=== PATIENT | male | born 1940 | race Caucasian/White ===

== ENCOUNTER 2017-10-07 11:12 | Day surgery (SDC) | payer OTHER ==
[2017-10-07] MEDS ORDERED: LACTATED RINGERS 1,000 ML IV ONE (12:19)
[2017-10-07] MEDS ORDERED: MIDAZOLAM 2 MG/2 ML VIAL IVP ONE (13:23)
[2017-10-07] MEDS ORDERED: fentaNYL 100 MCG/2 ML VIAL IVP ONE (13:23)
[2017-10-07 14:53] VITALS: BP 124/90
== END 2017-10-07 11:13 | disposition home or self-care (01) ==
LOC: SDS 11:12
PROVIDERS: ATTEND Surgery
PROC: 0DBL8ZX Excision of Transverse Colon, Via Natural or Artificial Opening Endoscopic, Diagnostic (ICD-10-PCS; principal; 2017-10-07 12:15)
DX: D12.3 Benign neoplasm of transverse colon (principal); K57.30 Diverticulosis of large intestine without perforation or abscess without bleeding; K64.8 Other hemorrhoids; Z86.010 Personal history of colon polyps; Z79.82 Long term (current) use of aspirin; I10 Essential (primary) hypertension; J45.909 Unspecified asthma, uncomplicated
CPT/HCPCS: 45380; J7120

== ENCOUNTER 2017-12-18 08:55 | Outpatient (CLI) | payer OTHER | END 2017-12-18 08:56 | disposition critical access hospital (66) | LOC: EMS 08:55 | PROVIDERS: ATTEND Surgery | DX: R42 Dizziness and giddiness (principal) | CPT/HCPCS: A0425; A0429 ==

== ENCOUNTER 2017-12-18 08:56 | Emergency (ER) | payer OTHER ==
[2017-12-18] MEDS ORDERED: LORazepam 2 MG/ML VIAL IVP STA (09:24)
[2017-12-18] MEDS ORDERED: MECLIZINE 12.5 MG TABLET PO STA (09:25)
--- NOTE | 2017-12-18 09:25 | ED Physician Documentation ---
PD HPI FOCAL NEURO - Stated complaint Stated Complaint: DIZZY - Chief complaint Chief Complaint: Neuro - History obtained from History obtained from: Patient, EMS - History of Present Illness Timing - onset: Today (this morning when he got up from bed; he felt okay when awoke, but got very dizzy/vertigo when he stood up. Feels better if stays still. Dizzy when stands up, moves head (bill to the left).) Timing - duration: Hours (2) Timing - details: Abrupt onset, Still present Severity of deficit: Moderate Weakness: No: Face, Arm, Hand, Leg, Foot, Right, Left, Other Numbness: No: Face, Arm, Hand, Leg, Foot, Right, Left, Other Associated symptoms: Nausea / vomiting. No: Headache, Syncope, Head injury, Chest pain, Neck pain, Back pain Contributing factors: positive: Atrial fibrillation. negative: Anticoagulated, Vascular dz Baseline status: positive: A&OX3, ambulatory, indep Similar symptoms before: Has not had sx before Recently seen: Not recently seen Review of Systems Constitutional: denies: Fever, Chills Eyes: denies: Loss of vision, Photophobia Ears: denies: Loss of hearing, Ear pain, Drainage/discharge, Tinnitus/ringing Nose: denies: Rhinorrhea / runny nose, Congestion, Sinus pressure / pain Throat: denies: Sore throat Cardiac: denies: Chest pain / pressure, Palpitations Respiratory: denies: Dyspnea, Cough GI: reports: Nausea. denies: Vomiting, Diarrhea : denies: Dysuria, Frequency Skin: denies: Rash, Lesions Neurologic: denies: Focal weakness, Numbness, Near syncope, Altered mental status, Headache, Head injury PD PAST MEDICAL HISTORY - Past Medical History Past Medical History: Yes Cardiovascular: Atrial fibrillation Respiratory: Asthma Endocrine/Autoimmune: None GI: Colon polyps : None HEENT: None Psych: None Musculoskeletal: Osteoarthritis Derm: Other - Past Surgical History Ortho: Other HEENT: Tonsil/Adenoidectomy Derm: Skin cancer surgery - Present Medications Home Medications: Ambulatory Orders Medication Instructions Recorded Confirmed Terazosin [Hytrin] 5 mg PO DAILY 10/04/17 12/18/17 Albuterol 1 puffs IN DAILY 10/07/17 12/18/17 Aspirin 81 mg PO DAILY 10/07/17 12/18/17 Diltiazem HCl [Cardizem] 120 mg PO BID 10/07/17 12/18/17 Metoprolol Succinate 12.5 mg PO DAILY 10/07/17 12/18/17 Dexamethasone [Decadron] 4 mg PO DAILY #5 tablet 12/18/17 Meclizine [Antivert] 25 mg PO Q6H PRN #30 tablet 12/18/17 - Allergies Allergies/Adverse Reactions: Allergies Allergy/AdvReac Type Severity Reaction Status Date / Time diphenhydramine AdvReac Rash Verified 10/07/17 12:04 [From Benadryl] Penicillins AdvReac Rash Verified 10/07/17 12:05 - Social History Does the pt smoke?: No Smoking Status: Never smoker PD ED PE NORMAL - Vitals Vital signs reviewed: Yes - General General: Alert and oriented X 3, No acute distress, Well developed/nourished - HEENT HEENT: Atraumatic, PERRL, EOMI (with nystagmus to the left), Ears normal, Moist mucous membranes, Pharynx benign - Neck Neck: Supple, no meningeal sign, No adenopathy, No bruit - Cardiac Cardiac: RRR, No murmur - Respiratory Respiratory: Clear bilaterally - Abdomen Abdomen: Soft, Non tender NIHSS - Level of Consciousness Level of consciousness: (0) Alert, Keenly responsive LOC Questions: (0) Answers both Q's correct LOC Commands: (0) Performs both correctly - Gaze Best Gaze: (0) Normal - Visual Visual: (0) No loss - Facial Palsy Facial Palsy: (0) Normal, symmetrical movement - Motor Arms (both separate) Motor Arm (right): (0) No drift Motor Arm (left): (0) No drift - Motor Legs (both separate) Motor Leg (right): (0) No drift Motor Leg (left): (0) No drift - Limb Ataxia Limb Ataxia: (0) Absent - Sensory Sensory: (0) Normal - Best Language Best Language: (0) No aphasia - Dysarthria Dysarthria: (0) Normal - Extinction and Inattention (formally neg Extinction and inattention: (0) No abnormality - Total Score/Results Total Score/Result: 0 Results - Vitals Vitals: Vital Signs - 24 hr 12/18/17 12/18/17 12/18/17 08:58 09:30 10:00 Temperature 36.1 C L Heart Rate 73 68 70 Respiratory 18 12 14 Rate Blood Pressure 126/88 H 119/73 114/88 H O2 Saturation 96 93 93 12/18/17 12/18/17 12/18/17 10:49 11:00 11:20 Temperature 36.2 C L Heart Rate 67 66 Respiratory 15 16 Rate Blood Pressure 113/77 122/72 O2 Saturation 94 93 Oxygen O2 Source Room air - EKG (time done) 9:04 Rate: Rate (enter#) (65) Rhythm: NSR [place]: Normal Intervals: Normal [place] QRS: Normal Ischemia: Normal ST segments. No: ST elevation c/w ischemia, ST depression - Labs Labs: Laboratory Tests 12/18/17 12/18/17 12/18/17 09:40 09:40 09:40 WBC 10.3 RBC 4.78 Hgb 15.1 Hct 44.4 MCV 92.8 MCH 31.6 H MCHC 34.0 RDW 13.7 Plt Count 169 MPV 7.3 L Neut # 8.4 H Lymph # 1.1 L [place] # 0.6 Eos # 0.1 Baso # 0.1 Absolute Nucleated RBC 0.00 Nucleated RBC % 0.0 ESR 4 Sodium 138 Potassium 4.2 Chloride 103 Carbon Dioxide 24 Anion Gap 11.0 BUN 22 H Creatinine 0.8 Estimated GFR (MDRD) 94 Glucose 106 H Calcium 9.4 Magnesium 2.0 Total Bilirubin 1.0 AST 23 ALT 24 Alkaline Phosphatase 54 Total Protein 6.6 L Albumin 4.0 Globulin 2.6 Albumin/Globulin Ratio 1.5 Lipase 18 L PD MEDICAL DECISION MAKING - ED course Complexity details: re-evaluated patient (improved with meds aitvan and meclizine), considered differential (seems peripheral vertigo and not central. ) , d/w patient Departure - Departure Disposition: Home, Self Care Clinical Impression: Positional vertigo Qualifiers: Laterality: unspecified laterality Qualified Code(s): H81.10 - Benign paroxysmal vertigo, unspecified ear Condition: Stable Record reviewed to determine appropriate education?: Yes Instructions: ED Vertigo Unspecified Follow-Up: CLARISSE LOVE [Primary Care Provider] - Prescriptions: Dexamethasone [Decadron] 4 mg PO DAILY #5 tablet Meclizine [Antivert] 25 mg PO Q6H PRN #30 tablet PRN Reason: Vertigo Comments: Regular fluids and food. Of your medications, terazosin is associated with dizziness. I realize you have not had a change in your dosing or medications for that. Otherwise they can be just inflammation or debris in the inner ear that is causing the improper feedback or sensation of movement creating the vertigo. For that would use some anti-inflammatory and an ENT vertigo medicine and see if that tapers down and improves in the next day or 2. If the dizziness is persistent, you might need to hold the terazosin to see if it may be newly a side effect from that. Follow-up with your primary care if not improved over the next few days. At least the medications seem to decrease her symptoms for now. Discharge Date/Time: 12/18/17 11:25
[2017-12-18 09:48] LABS: BASOPHILS # (AUTO) 0.1 10^3/uL (0.0-0.1); BASOPHILS % (AUTO) 0.6 %; EOSINOPHILS # (AUTO) 0.1 10^3/uL (0.0-0.7); EOSINOPHILS % (AUTO) 0.7 %; HGB - HEMOGLOBIN 15.1 g/dL (14.0-18.0); LYMPHOCYTES # (AUTO) 1.1 10^3/uL (1.5-3.5); LYMPHOCYTES % (AUTO) 10.8 %; MEAN CORPUSCULAR HEMOGLOBIN 31.6 pg (27.0-31.0); MEAN CORPUSCULAR VOLUME 92.8 fL (80.0-94.0); MEAN PLATELET VOLUME 7.3 fL (7.4-11.4); MONOCYTES # (AUTO) 0.6 10^3/uL (0.0-1.0); MONOCYTES % (AUTO) 5.9 %; NEUTROPHILS # (AUTO) 8.4 10^3/uL (1.5-6.6); PLT - PLATELET COUNT 169 10^3/uL (130-450); RED BLOOD COUNT 4.78 10^6/uL (4.70-6.10); RED CELL DISTRIBUTION WIDTH 13.7 % (12.0-15.0); WHITE BLOOD COUNT 10.3 x10^3/uL (4.8-10.8)
[2017-12-18 10:11] LABS: ALBUMIN/GLOBULIN RATIO 1.5 (1.0-2.2); CALCIUM 9.4 mg/dL (8.5-10.3); CREATININE 0.8 mg/dL (0.6-1.2); TOTAL PROTEIN 6.6 g/dL (6.7-8.2)
[2017-12-18] MEDS ORDERED: DEXAMETHASONE 10 MG/ML VIAL IVP STA (10:51)
[2017-12-18 11:11] VITALS: BP 122/72
== END 2017-12-18 11:25 | disposition home or self-care (01) ==
LOC: EDUNIT# → ED 08:56
DX: H81.10 Benign paroxysmal vertigo, unspecified ear (principal); I48.91 Unspecified atrial fibrillation; J45.909 Unspecified asthma, uncomplicated; Z79.82 Long term (current) use of aspirin
CPT/HCPCS: 36415; 80053; 83690; 83735; 85025; 85651; 93005; 96374; 96375; 99284; A9270; J2060

== ENCOUNTER 2017-12-28 10:03 | Emergency (ER) | payer MEDICARE, OTHER ==
[2017-12-28] MEDS ORDERED: diazePAM 5 MG TABLET PO STA (12:13)
--- NOTE | 2017-12-28 12:15 | ED Physician Documentation ---
PD HPI FOCAL NEURO - Stated complaint Stated Complaint: DIZZY - Chief complaint Chief Complaint: Neuro - History obtained from History obtained from: Patient - History of Present Illness Timing - onset: Other (He had spinning vertigo about 10 days ago, was seen here and treated with steroids and meclizine. He got better after a few days but recurred 3 days ago and notes that the meclizine seems to keep him from sleeping. He was has some trouble sleeping and chronically takes hydroxyzine at night for that. There is a very mild associated headache but not significant. He denies any hearing loss or ear pain. No URI symptoms. He denies weakness, numbness, or tingling in the extremities except for the toes on both sides which is symmetric.) Review of Systems Constitutional: denies: Fever, Chills Ears: denies: Loss of hearing, Ear pain Nose: denies: Rhinorrhea / runny nose, Congestion Throat: denies: Sore throat PD PAST MEDICAL HISTORY - Past Medical History Past Medical History: Yes Cardiovascular: Hypertension, Atrial fibrillation Respiratory: Asthma Endocrine/Autoimmune: None GI: Colon polyps : None HEENT: None Psych: None Musculoskeletal: Osteoarthritis Derm: Other - Past Surgical History Past Surgical History: Yes Ortho: Other HEENT: Tonsil/Adenoidectomy Derm: Skin cancer surgery - Present Medications Home Medications: Ambulatory Orders Medication Instructions Recorded Confirmed Terazosin [Hytrin] 5 mg PO DAILY 10/04/17 12/18/17 Albuterol 1 puffs IN DAILY 10/07/17 12/18/17 Aspirin 81 mg PO DAILY 10/07/17 12/18/17 Diltiazem HCl [Cardizem] 120 mg PO BID 10/07/17 12/18/17 Metoprolol Succinate 12.5 mg PO DAILY 10/07/17 12/18/17 Dexamethasone [Decadron] 4 mg PO DAILY #5 tablet 12/18/17 Meclizine [Antivert] 25 mg PO Q6H PRN #30 tablet 12/18/17 Promethazine [Phenergan] 25 - 50 mg PO Q6H PRN #20 tab 12/28/17 - Allergies Allergies/Adverse Reactions: Allergies Allergy/AdvReac Type Severity Reaction Status Date / Time diphenhydramine AdvReac Rash Verified 10/07/17 12:04 [From Benadryl] Penicillins AdvReac Rash Verified 10/07/17 12:05 - Social History Does the pt smoke?: No Smoking Status: Never smoker PD ED PE NORMAL - Vitals Vital signs reviewed: Yes - General General: Alert and oriented X 3, No acute distress - HEENT HEENT: PERRL, EOMI, Other (Left TM is occluded by cerumen, right TM is normal) - Neck Neck: Supple, no meningeal sign, No bony TTP - Cardiac Cardiac: RRR, No murmur - Respiratory Respiratory: No respiratory distress, Clear bilaterally - Neuro Neuro: Alert and oriented X 3, crater and packer 2-12 intact, Normal speech Eye Opening: Spontaneous Motor: Obeys Commands Verbal: Oriented GCS Score: 15 - Psych Psych: Normal mood, Normal affect NIHSS - Time Time: 12:10 - Level of Consciousness Level of consciousness: (0) Alert, Keenly responsive LOC Questions: (0) Answers both Q's correct LOC Commands: (0) Performs both correctly - Gaze Best Gaze: (0) Normal - Visual Visual: (0) No loss - Facial Palsy Facial Palsy: (0) Normal, symmetrical movement - Motor Arms (both separate) Motor Arm (right): (0) No drift Motor Arm (left): (0) No drift - Motor Legs (both separate) Motor Leg (right): (0) No drift Motor Leg (left): (0) No drift - Limb Ataxia Limb Ataxia: (0) Absent - Sensory Sensory: (0) Normal - Best Language Best Language: (0) No aphasia - Dysarthria Dysarthria: (0) Normal - Extinction and Inattention (formally neg Extinction and inattention: (0) No abnormality - Total Score/Results Total Score/Result: 0 Results - Vitals Vitals: Vital Signs - 24 hr 12/28/17 12/28/17 10:10 10:19 Temperature 36.1 C L 36.5 C Heart Rate 69 70 Respiratory 16 18 Rate Blood Pressure 130/80 O2 Saturation 97 96 Oxygen O2 Source Room air - EKG (time done) 1011 Rate: Rate (enter#) (70) Rhythm: NSR [place]: Normal Intervals: Normal [place] QRS: Low voltage Ischemia: Normal ST segments Computer interpretation: Agree with computer - Labs Labs: Laboratory Tests 12/28/17 12/28/17 12/28/17 12:04 12:04 12:04 WBC 11.1 H RBC 4.95 Hgb 15.7 Hct 46.1 MCV 93.1 MCH 31.6 H MCHC 34.0 RDW 14.4 Plt Count 154 MPV 7.7 Neut # 9.0 H Lymph # 1.1 L [place] # 0.9 Eos # 0.1 Baso # 0.0 Absolute Nucleated RBC 0.00 Nucleated RBC % 0.0 PT 11.8 INR 1.0 Sodium 135 Potassium 4.1 Chloride 101 Carbon Dioxide 25 Anion Gap 9.0 BUN 21 H Creatinine 0.8 Estimated GFR (MDRD) 94 Glucose 92 Calcium 9.9 Total Bilirubin 0.9 AST 23 ALT 26 Alkaline Phosphatase 58 Troponin I Total Protein 6.6 L Albumin 3.7 Globulin 2.9 Albumin/Globulin Ratio 1.3 Lipase 24 12/28/17 12:04 WBC RBC Hgb Hct MCV MCH MCHC RDW Plt Count MPV Neut # Lymph # [place] # Eos # Baso # Absolute Nucleated RBC Nucleated RBC % PT INR Sodium Potassium Chloride Carbon Dioxide Anion Gap BUN Creatinine Estimated GFR (MDRD) Glucose Calcium Total Bilirubin AST ALT Alkaline Phosphatase Troponin I < 0.04 Total Protein Albumin Globulin Albumin/Globulin Ratio Lipase - Rads (name of study) CT Head Radiology: EMP read contemporaneously (NAD) PD MEDICAL DECISION MAKING - ED course ED course: Seems peripheral, but the history of atrial fibrillation and advanced age I will get some cranial imaging. I order Valium in lieu of the meclizine which he did not like, he did not want to take Valium either because of personal history with that medication. Departure - Departure Disposition: 01 Home, Self Care Clinical Impression: Vertigo Condition: Good Record reviewed to determine appropriate education?: Yes Instructions: ED Vertigo Unspecified Prescriptions: Promethazine [Phenergan] 25 - 50 mg PO Q6H PRN #20 tab PRN Reason: Vertigo Comments: Followup with an ENT, [facility] closest [facility], call [phone] for an appointment.
[2017-12-28] MEDS ORDERED: PROMETHAZINE 25 MG TABLET PO STA (12:32)
[2017-12-28 12:34] LABS: ALBUMIN 3.7 g/dL (3.2-5.5); ALBUMIN/GLOBULIN RATIO 1.3 (1.0-2.2); BASOPHILS % (AUTO) 0.1 %; BILIRUBIN,TOTAL 0.9 mg/dL (0.2-1.0); CALCIUM 9.9 mg/dL (8.5-10.3); CREATININE 0.8 mg/dL (0.6-1.2); EOSINOPHILS # (AUTO) 0.1 10^3/uL (0.0-0.7); HGB - HEMOGLOBIN 15.7 g/dL (14.0-18.0); LYMPHOCYTES # (AUTO) 1.1 10^3/uL (1.5-3.5); LYMPHOCYTES % (AUTO) 10.2 %; MEAN CORPUSCULAR HEMOGLOBIN 31.6 pg (27.0-31.0); MEAN CORPUSCULAR VOLUME 93.1 fL (80.0-94.0); MEAN PLATELET VOLUME 7.7 fL (7.4-11.4); MONOCYTES # (AUTO) 0.9 10^3/uL (0.0-1.0); MONOCYTES % (AUTO) 7.7 %; PLT - PLATELET COUNT 154 10^3/uL (130-450); RED BLOOD COUNT 4.95 10^6/uL (4.70-6.10); RED CELL DISTRIBUTION WIDTH 14.4 % (12.0-15.0); TOTAL PROTEIN 6.6 g/dL (6.7-8.2); WHITE BLOOD COUNT 11.1 x10^3/uL (4.8-10.8)
[2017-12-28 12:46] LABS: PT - PROTHROMBIN TIME 11.8 secs (9.9-12.6)
--- NOTE | 2017-12-28 13:04 | CT Report ---
EXAM: CT HEAD EXAM DATE: 12/28/2017 12:41 PM. CLINICAL HISTORY: Vertigo. COMPARISON: None. TECHNIQUE: Multiaxial CT images were obtained from the foramen magnum to the vertex. Reformats: Coron al. IV contrast: None. In accordance with CT protocol optimization, one or more of the following dose reduction techniques w ere utilized for this exam: automated exposure control, adjustment of mA and/or KV based on patient s ize, or use of iterative reconstructive technique. FINDINGS: Parenchyma: No intraparenchymal hemorrhage. No evidence of mass, midline shift, or CT findings of acu te infarction. Porter-white differentiation is distinct. Diffuse chronic microangiopathic white matter changes are evident. Extraaxial Spaces: Normal for age. No subdural or epidural collections identified. Ventricles: The ventricles and cortical sulci are enlarged, consistent with age-related tissue loss. Sinuses and orbits: Imaged paranasal sinuses, orbits, and mastoids show no significant abnormality. Bones: No evidence of fracture or calvarial defect. Other: None. IMPRESSION: Generalized age-related cortical atrophic changes without evidence of acute intracranial abnormality. [facility] Referring Provider Line: [phone] SITE ID: [id number]
[2017-12-28 13:26] VITALS: BP 130/74
== END 2017-12-28 13:26 | disposition home or self-care (01) ==
LOC: ED 10:03
DX: R42 Dizziness and giddiness (principal); I10 Essential (primary) hypertension; I48.91 Unspecified atrial fibrillation; J45.909 Unspecified asthma, uncomplicated; Z86.010 Personal history of colon polyps; M19.90 Unspecified osteoarthritis, unspecified site; Z79.82 Long term (current) use of aspirin
CPT/HCPCS: 36415; 70450; 80053; 83690; 84484; 85025; 85610; 93005; 99283; 99284; Q0169

== ENCOUNTER 2018-02-26 10:30 | Emergency (ER) | payer OTHER ==
[2018-02-26] MEDS ORDERED: LIDOCAINE PATCH 5% TOP PRN (12:06)
[2018-02-26] MEDS ORDERED: ACETAMINOPHEN 325 MG TABLET PO STA (12:06)
--- NOTE | 2018-02-26 12:13 | ED Physician Documentation ---
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 no numbness or weakness to legs no abd pain or chest pain no hematuria dysuria or incontinence of retention seen at [facility] for same and had CT and xrays - results not known he has been taking motrin s relief Review of Systems Constitutional: denies: Fever Cardiac: denies: Chest pain / pressure Respiratory: denies: Dyspnea GI: denies: Abdominal Pain : denies: Dysuria, Hesitancy, Incontinent, Hematuria Skin: denies: Rash Musculoskeletal: reports: Back pain Neurologic: denies: Focal weakness, Numbness Endocrine: denies: Easy bruising / bleeding Immunocompromised: denies: Immunocompromised PD PAST MEDICAL HISTORY - Past Medical History Past Medical History: Yes Cardiovascular: Hypertension, Atrial fibrillation Respiratory: Asthma Endocrine/Autoimmune: None GI: Colon polyps : None HEENT: None Psych: None Musculoskeletal: Osteoarthritis Derm: Other - Past Surgical History Past Surgical History: Yes Ortho: Other HEENT: Tonsil/Adenoidectomy Derm: Skin cancer surgery - Present Medications Home Medications: Ambulatory Orders Medication Instructions Recorded Confirmed Terazosin [Hytrin] 5 mg PO DAILY 10/04/17 12/18/17 Albuterol 1 puffs IN Q4H PRN 10/07/17 12/18/17 Aspirin 81 mg PO DAILY 10/07/17 12/18/17 Diltiazem HCl [Cardizem] 120 mg PO BID 10/07/17 12/18/17 Cyclobenzaprine [Flexeril] 10 mg PO TID PRN #20 tablet 02/26/18 Diclofenac Sodium [Diclo Gel] 1 each TP 02/26/18 Diltiazem HCl [Tiazac] 120 mg PO BID 02/26/18 02/26/18 Fluticasone [Flonase] 1 sprays JULIENNE DAILY 02/26/18 02/26/18 Ipratropium/Albuterol [Duoneb] QID 02/26/18 Lidocaine Patch 5% [Lidoderm Patch] 1 each TOP DAILY PRN #10 patch 02/26/18 Metoprolol Tartrate 12.5 mg PO BID 02/26/18 02/26/18 Niacin [Niacor] 500 mg PO 02/26/18 Pravastatin [Pravachol] 0 mg 02/26/18 Terazosin [Hytrin] 5 mg PO QPM 02/26/18 02/26/18 hydrOXYzine HCl [Hydroxyzine HCl] 10 mg PO 02/26/18 oxyCODONE [Roxicodone] 5 mg PO Q6H PRN #6 tablet 02/26/18 - Allergies Allergies/Adverse Reactions: Allergies Allergy/AdvReac Type Severity Reaction Status Date / Time bee venom protein (honey bee) Allergy Anaphylaxis Verified 02/26/18 10:44 dexamethasone Allergy Unknown Verified 02/26/18 10:44 doxepin Allergy Unknown Verified 02/26/18 10:44 meclizine Allergy Unknown Verified 02/26/18 10:44 naproxen Allergy Unknown Verified 02/26/18 10:44 propoxyphene Allergy Unknown Verified 02/26/18 10:44 diphenhydramine AdvReac Rash Verified 02/26/18 10:39 [From Benadryl] Penicillins AdvReac Rash Verified 02/26/18 10:39 - Social History Does the pt smoke?: No Smoking Status: Never smoker PD ED PE NORMAL - Vitals Vital signs reviewed: Yes - General General: Alert and oriented X 3 - Neck Neck: Supple, no meningeal sign - Cardiac Cardiac: RRR - Respiratory Respiratory: No respiratory distress, Clear bilaterally - Abdomen Abdomen: Soft, Non tender, Other (bit distended but no pulsatile mass or sig TTP ) - Back Back: No spinal TTP, Other (right lumbar region TTP wand limited painful ROM, no focal spine TTP redness swelling and no shingles rash) - Derm Derm: Normal color - Neuro Neuro: No motor deficit, No sensory deficit, Other (no saddle anesthesia, hip flexion knee extension foot dorsi plantar flexion great toe ext all 5/5 no clonus, neg SLR, nl senation, + pulses to both feet) Results - Vitals Vitals: Vital Signs - 24 hr 02/26/18 02/26/18 02/26/18 10:32 14:10 17:15 Temperature 36.8 C Heart Rate 101 H 78 76 Respiratory 18 16 16 Rate Blood Pressure 130/86 H 127/83 H 122/70 O2 Saturation 99 96 Oxygen O2 Source Room air - Labs Labs: Laboratory Tests 02/26/18 14:05 Urine Color YELLOW Urine Clarity CLEAR Urine pH 6.0 Ur Specific [place] 1.025 Urine Protein NEGATIVE Urine Glucose (UA) NEGATIVE Urine Ketones NEGATIVE Urine Occult Blood NEGATIVE Urine Nitrite NEGATIVE Urine Bilirubin NEGATIVE Urine Urobilinogen 0.2 (NORMAL) Ur Leukocyte Esterase NEGATIVE Ur Microscopic Review NOT INDICATED Urine Culture Comments NOT INDICATED - Rads (name of study) MRI T and L spine Radiology: See rad report (T spine: scarttered posterior disk protrusions, no central conal or foraminal stenosis, posterior disk protrusion C5/6 leads to canal stenosis, no abn cord signal, no abn bone lesions as seen on CT. L spine: degen disk dz, con central canal stenosis, multilevel foraminal stenosis, multilevel spondylolithesis, no cpmp fx) PD MEDICAL DECISION MAKING - ED course ED course: CT obtained from [facility] nephrolithiais, prom perinephric reticulatin suggests renal dz, no hydro or hydroureter or ureteral calculi, nl appendix, constipation, diverticula s -itis , degen sine chages, spinal stenosis, HNP, scoliotic curvature, scleritic lesions T12 could be old trauma or could be neoplastic, prostatic calcifications , no AAA mentioned also pt meds are not updated - he takes the following colace 250 BID flonase QD hydroxysine 10 mg qhs metoprolol tartrate 12.5 mg BID, diltiazem (Tiazac equiv) 120mg BID niacin 500 qhs pravastatin 40 QD terazosin 5 mg qhs Departure - Departure Disposition: 01 Home, Self Care Clinical Impression: Back pain Qualifiers: Back pain location: low back pain Chronicity: acute Back pain laterality: right Sciatica presence: without sciatica Qualified Code(s): M54.5 - Low back pain Condition: Good Instructions: ED Low Back Pain Injury Follow-Up: CLARISSE LOVE [Primary Care Provider] - Prescriptions: Cyclobenzaprine [Flexeril] 10 mg PO TID PRN #20 tablet PRN Reason: Spasms Lidocaine Patch 5% [Lidoderm Patch] 1 each TOP DAILY PRN #10 patch PRN Reason: Pain oxyCODONE [Roxicodone] 5 mg PO Q6H PRN #6 tablet PRN Reason: severe pain only Comments: The CT scan from the [facility] showed some spots that might have been cancerous so we got an MRI and thankfully that does not show any bone disease. You do have degenerative changes and narrowing of the spinal canal and the foramina the nerves come out of. You also have herniated disks at several levels, the most significant one is at level C5C6. But none of these findings is emergent and so you can go home for today I have prescribed lidocaine patches and a muscle relaxant to help with your back pain And a limited number of oxycodone only to be taken if the pain is severe despite the other medications You can also take tylenol [facility] about the degenerative changes and herniated disks seen on the MRI Return if worse
[2018-02-26] MEDS ORDERED: CYCLOBENZAPRINE 10 MG TABLET PO STA (12:16)
[2018-02-26] MEDS ORDERED: METOPROLOL SUCCINATE 25 MG TABLET PO STA (13:51)
[2018-02-26] MEDS ORDERED: diltiaZEM 30 MG TABLET PO STA (13:51)
[2018-02-26] MEDS ORDERED: METOPROLOL TARTRATE 50 MG TABLET PO STA (13:58)
[2018-02-26] MEDS ORDERED: diltiaZEM CD 120 MG CAPSULE PO STA (13:59)
[2018-02-26 14:15] LABS: BILIRUBIN,URINE NEGATIVE (NEGATIVE); GLUCOSE, URINE (UA) NEGATIVE (NEGATIVE); KETONES,URINE (UA) NEGATIVE (NEGATIVE); LEUKOCYTE ESTERASE, URINE NEGATIVE (NEGATIVE); NITRITE,URINE NEGATIVE (NEGATIVE); OCCULT BLOOD,URINE NEGATIVE (NEGATIVE); PROTEIN,URINE NEGATIVE (NEGATIVE); UROBILINOGEN,URINE 0.2 (NORMAL) E.U./dL (NORMAL)
[2018-02-26] MEDS ORDERED: METOPROLOL TARTRATE 25 MG TABLET PO STA (14:15)
[2018-02-26 14:16] LABS: CLARITY,URINE CLEAR (CLEAR)
--- NOTE | 2018-02-26 16:55 | MRI Preliminary Report ---
Exam: MRI LUMBAR SPINE W/O IMPRESSION: 1. Degenerative disk disease is seen in the lower thoracic spine and throughout the lumbar spine. 2. No central canal stenosis. 3. Multilevel foraminal stenosis. 4. Multilevel spondylolisthesis. 5. No acute or subacute endplate infraction. 6. Colonic diverticulosis Comment: The following findings are so common in adults without low back pain that while we report th eir presence, they must be interpreted with caution and in the context of the clinical situation. (Re cynthia Swift et al, Spine 2001) Prevalence of findings in patients without low back pain: Disk degeneration (any evidence): 92% Disk desiccation/T2 signal loss: 83% Disk height loss: 56% Disk bulge: 64% Disk protrusion: 32% Annular tear/high intensity zone: 38% [facility] SITE ID: [id number]
--- NOTE | 2018-02-26 17:07 | MRI Report ---
EXAM: MRI LUMBAR SPINE WITHOUT CONTRAST EXAM DATE: 02/26/2018 04:29 PM. CLINICAL HISTORY: Severe back pain. COMPARISON: MRI thoracic spine from today. TECHNIQUE: Multiplanar, multisequence T1-weighted and fluid-sensitive sequences of the lumbar spine w ithout contrast. Other: None. FINDINGS: Colonic diverticulosis is present. Numbering assumes 5 non-rib bearing lumbar-type vertebral bodies. No suspicious marrow replacement is present in the lumbar vertebral bodies. The distal tip of the conus medullaris is seen to the level of the L1 inferior endplate. Grade 1 retrolisthesis of L1 relative to L2, L2 relative to L3, and L3 relative to L4 is noted. Grade 1 anterolisthesis of L5 relative to S1 is present. Severe loss of disk space height is seen at L1-L2 and L2-L3. T10-T11: No focal posterior disk protrusion. T11-T12: A mild posterior disk protrusion is seen. T12-L1: A mild posterior disk protrusion is seen. L1-L2: A moderate posterior disk protrusion is seen. Bilateral foraminal stenosis is seen. A far late ral component of the disk protrusion is seen particularly on the right. Superior lateral recess narro wing is present bilaterally. No central canal stenosis L2-L3: A mild to moderate posterior disk protrusion is seen. Superior lateral recess stenosis is seen bilaterally greater on the right relative to the left. There is a far lateral component to the disk protrusion on the left. Left foraminal stenosis is present. L3-L4: A mild to moderate posterior disk protrusion is seen. Bilateral foraminal narrowing versus bor derline foraminal stenosis is present. Superior lateral recess stenosis is seen bilaterally greater o n the left relative to the right. L4-L5: A mild to moderate posterior disk protrusion is seen. There is a foraminal component bilateral ly. Left foraminal narrowing bordering on foraminal stenosis is present. At least mild to moderate ri ght foraminal stenosis is seen at L4-L5. Bilateral superior lateral recess stenosis is seen greater o n the right relative to the left. L5-S1: A mild to moderate posterior disk protrusion is seen. There is a foraminal component bilateral ly much greater on the right. At least moderate if not severe right foraminal stenosis is present. Le ft foraminal narrowing bordering on foraminal stenosis is present. Facet/ligamentum flavum hypertrophy is seen throughout the lumbar spine. IMPRESSION: 1. Degenerative disk disease is seen in the lower thoracic spine and throughout the lumbar spine. 2. No central canal stenosis. 3. Multilevel foraminal stenosis. 4. Multilevel spondylolisthesis. 5. No acute or subacute endplate infraction. 6. Colonic diverticulosis. Comment: The following findings are so common in adults without low back pain that while we report th eir presence, they must be interpreted with caution and in the context of the clinical situation. (Re cynthia Swift et al, Spine 2001) Prevalence of findings in patients without low back pain: Disk degeneration (any evidence): 92% Disk desiccation/T2 signal loss: 83% Disk height loss: 56% Disk bulge: 64% Disk protrusion: 32% Annular tear/high intensity zone: 38% [facility] Referring Provider Line: [phone] SITE ID: [id number]
--- NOTE | 2018-02-26 17:07 | MRI Preliminary Report ---
Exam: MRI THORACIC SPINE W/O IMPRESSION: 1. Scattered posterior disk protrusions are seen in the thoracic spine without central canal or so inal stenosis present in the thoracic spine. 2. A posterior disk protrusion, retrolisthesis of C5 relative to C6 and buckling of the ligamentum fl avum result in central canal stenosis at this level. 3. No acute or subacute compression fracture is present [facility] SITE ID: [id number]
--- NOTE | 2018-02-26 17:51 | MRI Report ---
EXAM: MRI THORACIC SPINE WITHOUT CONTRAST EXAM DATE: 02/26/2018 04:29 PM. CLINICAL HISTORY: Severe back pain. Left-sided low back and hip pain. COMPARISONS: MRI lumbar spine from today. TECHNIQUE: Multiplanar, multisequence T1-weighted and fluid-sensitive sequences of the thoracic spine from C7 to L1 without contrast. Other: None. FINDINGS: No suspicious marrow replacement is present in the thoracic vertebral bodies. No abnormal signal is seen in the thoracic spinal cord. Retrolisthesis of C5 relative to C6 is present. There is a posterior disk protrusion at C5-C6 and the re is buckling of ligamentum flavum. There is mild central canal stenosis at C5-C6. Subtle inversion recovery hyperintense signal in the cervical spinal cord at this level has no definite correlate on t he T2-weighted sequence and might well be artifact. This is on the edge of the imaging field. At C6-C7, there is a posterior bulge of the annulus. There are scattered posterior disk protrusions, which are minimal to mild in the thoracic spine. This is greatest at T11-T12 and at T12-L1. Anterior disk protrusion and osteophyte formation is seen at multiple levels most evident in the mid and lower thoracic spine. No central canal or foraminal stenosis is identified in the thoracic spine. IMPRESSION: 1. Scattered posterior disk protrusions are seen in the thoracic spine without central canal or so inal stenosis present in the thoracic spine. 2. A posterior disk protrusion, retrolisthesis of C5 relative to C6 and buckling of the ligamentum fl avum result in central canal stenosis at this level. 3. No acute or subacute compression fracture is present. [facility] Referring Provider Line: [phone] SITE ID: [id number]
[2018-02-26 17:55] VITALS: BP 122/70
== END 2018-02-26 19:06 | disposition home or self-care (01) ==
LOC: ED 10:30
DX: M54.5 Low back pain (principal); I10 Essential (primary) hypertension; I48.91 Unspecified atrial fibrillation; Z79.82 Long term (current) use of aspirin; J45.909 Unspecified asthma, uncomplicated
CPT/HCPCS: 72146; 72148; 81003; 99283; 99284; A9270; 81001; 87086

== ENCOUNTER 2018-12-05 19:19 | Outpatient (CLI) | payer OTHER | END 2018-12-05 19:20 | disposition home or self-care (01) | LOC: SC 19:19 | PROVIDERS: ATTEND Internal Medicine Pulmonary Disease | DX: G47.33 Obstructive sleep apnea (adult) (pediatric) (principal); G47.61 Periodic limb movement disorder | CPT/HCPCS: 95810 ==

== ENCOUNTER 2018-12-25 12:44 | Outpatient (CLI) | payer OTHER | END 2018-12-25 12:45 | disposition home or self-care (01) | LOC: SC 12:44 | PROVIDERS: ATTEND Nurse Practitioner Family | DX: G47.33 Obstructive sleep apnea (adult) (pediatric) (principal) | CPT/HCPCS: 99212; 99214 ==

== ENCOUNTER 2018-12-31 20:29 | Outpatient (CLI) | payer OTHER | END 2018-12-31 20:30 | disposition home or self-care (01) | LOC: SC 20:29 | PROVIDERS: ATTEND Internal Medicine Pulmonary Disease | DX: G47.33 Obstructive sleep apnea (adult) (pediatric) (principal); G47.61 Periodic limb movement disorder; I47.1 Supraventricular tachycardia | CPT/HCPCS: 95811 ==

== ENCOUNTER 2019-02-04 09:15 | Outpatient (CLI) | payer OTHER | END 2019-02-04 09:16 | disposition home or self-care (01) | LOC: SC 09:15 | PROVIDERS: ATTEND Nurse Practitioner Family | DX: G47.33 Obstructive sleep apnea (adult) (pediatric) (principal) | CPT/HCPCS: 99212; 99214 ==

== ENCOUNTER 2019-04-06 10:39 | Outpatient (CLI) | payer OTHER | END 2019-04-06 10:40 | disposition home or self-care (01) | LOC: SC 10:39 | PROVIDERS: ATTEND Nurse Practitioner Family | DX: G47.33 Obstructive sleep apnea (adult) (pediatric) (principal) | CPT/HCPCS: 99212; 99214 ==

== ENCOUNTER 2019-09-03 11:05 | Outpatient (CLI) | payer OTHER | END 2019-09-03 11:06 | disposition home or self-care (01) | LOC: DI 11:05 | PROVIDERS: ATTEND Registered Nurse | DX: R00.0 Tachycardia, unspecified (principal) | CPT/HCPCS: 93306 ==

== ENCOUNTER 2024-07-30 16:59 | Emergency (ER) | payer OTHER ==
[2024-07-30 17:15] VITALS: BP 155/79; O2SAT 98
--- NOTE | 2024-07-30 18:55 | ED Physician Documentation ---
History of Present Illness - Stated complaint Stated Complaint: HEAD LAC - Chief complaint Chief Complaint: Trauma Hd/Nk - Additonal information Additional information: 84-year-old male with history of hypertension, atrial fibrillation, asthma, alcohol dependence, colon polyps, osteoarthritis presents emergency department for scalp laceration to the top of his head. Patient says that he tripped over something while trying to put away his lawn more took a step back and as he was falling backwards he hit the top of his head onto an A-frame playset. He had no loss of consciousness he is not any blood thinners he denies any neck pain no nausea or vomiting.Bleeding is well-controlled. PD PAST MEDICAL HISTORY - Past Medical History Past Medical History: Yes Cardiovascular: Hypertension, Atrial fibrillation Respiratory: Asthma Endocrine/Autoimmune: None GI: Colon polyps : None HEENT: None Psych: None Musculoskeletal: Osteoarthritis Derm: Other - Past Surgical History Past Surgical History: Yes Ortho: Other HEENT: Tonsil/Adenoidectomy Derm: Skin cancer surgery - Present Medications Home Medications: Ambulatory Orders Medication Instructions Recorded Confirmed Terazosin [Hytrin] 5 mg PO DAILY 10/04/17 12/18/17 Albuterol 1 puffs IN Q4H PRN 10/07/17 12/18/17 Aspirin 81 mg PO DAILY 10/07/17 12/18/17 dilTIAZem HCL [Cardizem] 120 mg PO BID 10/07/17 12/18/17 Cyclobenzaprine [Flexeril] 10 mg PO TID PRN #20 tablet 02/26/18 Diclofenac Sodium [Diclo Gel] 1 each TP 02/26/18 Fluticasone [Flonase] 1 sprays JULIENNE DAILY 02/26/18 02/26/18 Ipratropium/Albuterol [Duoneb] QID 02/26/18 Lidocaine Patch 5% [Lidoderm Patch] 1 each TOP DAILY PRN #10 patch 02/26/18 Metoprolol Tartrate 12.5 mg PO BID 02/26/18 02/26/18 Niacin [Niacor] 500 mg PO 02/26/18 Pravastatin [Pravachol] 0 mg 02/26/18 Terazosin [Hytrin] 5 mg PO QPM 02/26/18 02/26/18 dilTIAZem HCL [Tiazac] 120 mg PO BID 02/26/18 02/26/18 hydrOXYzine HCL [Hydroxyzine HCl] 10 mg PO 02/26/18 oxyCODONE [Roxicodone] 5 mg PO Q6H PRN #6 tablet 02/26/18 - Allergies Allergies/Adverse Reactions: Allergies Allergy/AdvReac Type Severity Reaction Status Date / Time bee venom protein (honey bee) Allergy Anaphylaxis Verified 07/30/24 17:10 dexamethasone Allergy Unknown Verified 07/30/24 17:10 doxepin Allergy Unknown Verified 07/30/24 17:10 meclizine Allergy Unknown Verified 07/30/24 17:10 naproxen Allergy Unknown Verified 07/30/24 17:10 propoxyphene Allergy Unknown Verified 07/30/24 17:10 diphenhydramine AdvReac Rash Verified 07/30/24 17:10 [From Benadryl] Penicillins AdvReac Rash Verified 07/30/24 17:10 - Social History Does the pt smoke?: No Smoking Status: Never smoker Does the pt drink ETOH?: No Does the pt have substance abuse?: No - Immunizations Immunizations are current?: Yes PD ED PE NORMAL - Vitals Vital signs reviewed: Yes - General General: Alert and oriented X 3, No acute distress, Well developed/nourished - HEENT HEENT: PERRL, EOMI, Other (8 cm scalp laceration to top of scalp.) - Neck Neck: No bony TTP, C-Spine cleared by NEXUS criteria - Cardiac Cardiac: RRR - Respiratory Respiratory: No respiratory distress - Abdomen Abdomen: Normal bowel sounds - Back Back: No CVA TTP - Derm Derm: Other (8 cm scalp laceration to top of head.) - Neuro Neuro: Alert and oriented X 3, borderer 2-12 intact, No motor deficit, No sensory deficit, Normal speech Eye Opening: Spontaneous Motor: Obeys Commands Verbal: Oriented GCS Score: 15 - Psych Psych: Normal mood, Normal affect Results - Vitals Vitals: Vital Signs - 24 hr 07/30/24 17:10 Temperature 36.8 C Heart Rate 100 Respiratory 16 Rate Blood Pressure 155/79 H O2 Saturation 98 Oxygen O2 Source Room air - Rads (name of study) Head CT without Relevant Findings:: Final report received, EMP independent interpretation of test, Other (No acute intracranial hemorrhages or abnormalities) Procedures - Laceration (location) Scalp laceration Length in cm: 8 (Top of scalp laceration) Wound type: Linear Anesthesia: Lidocaine 1% with epi Wound preparation: Irrigated copiously NS, To the base Skin layer closure: Geronimo (8) Other: Patient tolerated well, No complications, Dressing applied, Tetanus UTD PD Medical Decision Making - ED course ED course: 84-year-old male presents emergency department for scalp laceration and head injury. Head CT was complete for further evaluation no intracranial hemorrhages or abnormalities consider doing a cervical spine CT but patient was cleared with Nexus criteria no tenderness with range of motion or palpation to his neck. Wound inspected under direct bright light with good visualization. Area with linear laceration across soft tissue through adipose without exposure of muscle belly or tendon. No overt foreign body. Area hemostatic. Neurovascular exam congruent with above. Area extensively irrigated with sterile normal saline under pressure. Laceration repaired in simple fashion With a total of 8 geronimo.(please see procedure note for further details). Patient tolerated procedure well. Cautious return precautions discussed w/ full understanding. Wound care discussed. Prompt follow up with primary care physician discussed and return for suture removal in 8-10 days. Departure - Departure Disposition: 01 Home, Self Care Clinical Impression: Ground-level fall, Laceration of head Instructions: ED Laceration Scalp Stitch Or Stap Comments: Come back for any signs of infection which would include: Redness, swelling, drainage, increased pain, or fevers. You can wash it soap and water. Keep it covered and moist with bacitracin ointment which is available over the counter; avoid neosporin. Follow-up with your physician in 8-10 days for staple removal. Forms: PCP List Discharge Date/Time: 07/30/24 19:58
--- NOTE | 2024-07-30 19:28 | CT Report ---
PROCEDURE: Head WO INDICATIONS: GLF, head injury TECHNIQUE: Noncontrast 4.5 mm thick angled axial sections acquired from the foramen magnum to the vertex. For r adiation dose reduction, the following was used: automated exposure control, adjustment of mA and/or kV according to patient size. COMPARISON: 12/28/2017 FINDINGS: Image quality: Excellent. CSF spaces: Basal cisterns are patent. No extra-axial fluid collections. Ventricles are normal in size and shape. Brain: No midline shift. No intracranial masses or hemorrhage. Age-related global volume loss and c hronic microvascular ischemic changes. Intracranial atherosclerotic vascular calcifications. Porter-wh ite matter interface is normal. Skull and face: Calvarium and visualized facial bones are intact, without suspicious lesions. Bilat eral lens replacements. The orbits are otherwise normal in appearance. Sinuses: Visualized sinuses and mastoids are clear. IMPRESSION: No acute intracranial pathology. Reviewed by: Abdi Duke MD on 07/30/2024 7:26 PM PDT Approved by: Abdi Duke MD on 07/30/2024 7:26 PM PDT Station ID: [id number]
[2024-07-30] MEDS: BACITRACIN ZINC OINT 1 PACKET TOP STA (19:47)
== END 2024-07-30 19:58 | disposition home or self-care (01) ==
LOC: ED 16:59
DX: S01.01XA Laceration without foreign body of scalp, initial encounter (principal); W01.198A Fall on same level from slipping, tripping and stumbling with subsequent striking against other object, initial encounter; Y93.H2 Activity, gardening and landscaping; Y92.007 Garden or yard of unspecified non-institutional (private) residence as the place of occurrence of the external cause
CPT/HCPCS: 12004; 70450; 99283; 99284; A9270